=== PATIENT | male | born 1995 | race Two or more races ===

== ENCOUNTER 2017-04-06 20:44 | Emergency (ER) | payer SELFPAY ==
[~2017-04-06] VITALS: Ht 185.4 cm; Wt 77.1 kg
--- NOTE | 2017-04-06 20:46 | NUR ---
PT TO ER BED 11 C/O LT EYE PAIN S/P POSSIBLE WOOD SHAVING THAT GOT INTO HIS EYE WHILE WORKING AT AROUND 1030 TODAY. REDNESS AND DISCHARGE NOTED. NO LOSS OF VISION. AWAITING MD LOVE.
[2017-04-06] MEDS ORDERED: TETRACAINE HCL/PF 0.5% UD 2 ML BOTTLE ONE (21:32)
[2017-04-06] MEDS ORDERED: FLUORESCEIN SODIUM OPHTH 1 EA STRIP ONE (21:32)
--- NOTE | 2017-04-06 21:35 | NUR ---
[employer]MENT [employer]ESSOR AT BEDSIDE FOR EVAL.
--- NOTE | 2017-04-06 22:38 | NUR ---
AFFECTED EYE FLUSHED AND IRRIGATED. DISCHARGE W/ MEDICATION PRESCRIPTION. STABLE CONDITION.
[2017-04-06 22:40] VITALS: BP 132/77
== END 2017-04-06 22:41 | disposition home or self-care (01) ==
LOC: ER 20:46
DX: S00.212A Abrasion of left eyelid and periocular area, initial encounter (principal); X58.XXXA Exposure to other specified factors, initial encounter; Y92.89 Other specified places as the place of occurrence of the external cause; Y93.89 Activity, other specified; Y99.8 Other external cause status
CPT/HCPCS: 99283; A4606; Z7610

== ENCOUNTER 2023-08-22 00:16 | Emergency (ER) | payer OTHER ==
[~2023-08-22] VITALS: Ht 190.5 cm; Wt 97.5 kg
[2023-08-22 00:44] VITALS: TEMP 98.6
[2023-08-22] MEDS ORDERED: IV NS 0.9% 1,000 ML BAG IV ONE (01:00)
[2023-08-22] MEDS ORDERED: METOCLOPRAMIDE HCL 10 MG/2 ML VIAL IV ONE (01:00)
[2023-08-22] MEDS ORDERED: SUMATRIPTAN SUCCINATE 6 MG/0.5 ML VIAL SQ ONE ×2 (01:00→01:12)
[2023-08-22] MEDS ORDERED: KETOROLAC TROMETHAMINE INJ 30 MG/ML VIAL IV ONE (01:00)
[2023-08-22] MEDS ORDERED: KETOROLAC TROMETHAMINE INJ 30 MG/ML VIAL ONE (01:12)
[2023-08-22] MEDS ORDERED: METOCLOPRAMIDE HCL 10 MG/2 ML VIAL ONE (01:13)
[2023-08-22] MEDS ORDERED: METO-295 PO (01:52)
[2023-08-22] MEDS ORDERED: SUMA100T16 PO (01:52)
[2023-08-22] MEDS ORDERED: KETO10TA2 PO (01:52)
[2023-08-22 02:00] VITALS: BP 118/68; O2SAT 96
== END 2023-08-22 02:01 | disposition home or self-care (01) ==
LOC: ER 00:22
DX: G43.909 Migraine, unspecified, not intractable, without status migrainosus (principal); F17.200 Nicotine dependence, unspecified, uncomplicated; Z79.899 Other long term (current) drug therapy
CPT/HCPCS: 99284; 96374; 96361; 96375; 96372; J3030; J2765; J1885; J7030